=== PATIENT | female | born 1970 | race Caucasian/White ===

== ENCOUNTER 2020-06-11 12:48 | Emergency (ER) | payer BC ==
[~2020-06-11 12:48] MED LIST: BACTRIM 400-801 EACH PO; FLAGYL500 MG PO; MECLIZINE HCL12.5 MG PO; METOPROLOL TART50 MG PO; NORCO 5-325 TA1 EACH PO; NOVOLOG MI100 UNIT/1 SQ; PLAVIX 75 MG TA75 MG PO; PREVACID30 MG PO; TOPROL XL50 MG PO
[2020-06-11 13:49] LABS: HEMOGLOBIN 15.6 gm/dl (12.3-15.3); RED BLOOD COUNT 5.1 M/UL (4.00-5.10); WHITE BLOOD COUNT 5.9 K/UL (4.5-11.0)
[2020-06-11 14:17] LABS: BUN/CREATININE RATIO 34 (0-10)
[2020-06-11] MEDS ORDERED: ZOFRAN 4 MG TAB4 MG PO (16:41)
== END 2020-06-11 16:49 | disposition home or self-care (01) ==
LOC: ER1 12:48
PROVIDERS: Physician Assistant Medical
DX: R10.84 Generalized abdominal pain (principal); R11.2 Nausea with vomiting, unspecified; R19.7 Diarrhea, unspecified; K63.89 Other specified diseases of intestine; E11.9 Type 2 diabetes mellitus without complications; Z86.73 Personal history of transient ischemic attack (TIA), and cerebral infarction without residual deficits; Z88.0 Allergy status to penicillin; Z90.49 Acquired absence of other specified parts of digestive tract
CPT/HCPCS: 71045; 80053; 81001; 82009; 82150; 83605; 83690; 85025; 96374; 96375; 99284; J2270; J2405; J7030; Q9967

== ENCOUNTER → 2020-07-15 | Outpatient (CLI) | payer BC ==
[~2020-07-15] MED LIST changes: +ZOFRAN 4 MG TAB4 MG PO
== END ==
LOC: MAMO 06-20 13:30
DX: Z12.31 Encounter for screening mammogram for malignant neoplasm of breast (principal); Z78.0 Asymptomatic menopausal state
CPT/HCPCS: 77063; 77067

== ENCOUNTER → 2021-04-10 | Outpatient (CLI) | payer BC ==
[2021-04-10 09:56] LABS: HEMOGLOBIN 14.3 gm/dl (12.3-15.3); RED BLOOD COUNT 4.88 M/UL (4.00-5.10); WHITE BLOOD COUNT 7.1 K/UL (4.5-11.0)
[2021-04-10 10:18] LABS: BUN/CREATININE RATIO 20 (0-10)
== END ==
LOC: LAB 09:24
PROVIDERS: Nurse Practitioner Family
DX: I10 Essential (primary) hypertension (principal); E11.9 Type 2 diabetes mellitus without complications; E78.5 Hyperlipidemia, unspecified; E55.9 Vitamin D deficiency, unspecified; E53.9 Vitamin B deficiency, unspecified; R53.83 Other fatigue
CPT/HCPCS: 36415; 80053; 80061; 82607; 82652; 83036; 84439; 84443; 85025

== ENCOUNTER → 2021-08-31 | Outpatient (CLI) | payer BC | LOC: EROP 11:17 | DX: U07.1 COVID-19 (principal); I10 Essential (primary) hypertension; E11.9 Type 2 diabetes mellitus without complications; Z23 Encounter for immunization | CPT/HCPCS: M0247; Q0247 ==

== ENCOUNTER → 2021-10-13 | Outpatient (CLI) | payer BC | LOC: HEART 5 10:07 | DX: R06.00 Dyspnea, unspecified (principal) | CPT/HCPCS: 71046; 94010; 94729 ==

== ENCOUNTER → 2021-12-30 | Outpatient (CLI) | payer BC | LOC: KOH-I 12:30 | DX: R93.89 Abnormal findings on diagnostic imaging of other specified body structures (principal); R06.00 Dyspnea, unspecified; I31.3 Pericardial effusion (noninflammatory); J94.9 Pleural condition, unspecified; Z90.49 Acquired absence of other specified parts of digestive tract | CPT/HCPCS: 71250 ==